=== PATIENT | female | born 1995 | race Hispanic/Latino ===

== ENCOUNTER 2024-11-03 08:44 | Emergency (ER) | payer OTHER ==
[~2024-11-03] VITALS: Ht 175.3 cm; Wt 79.9 kg
[2024-11-03 09:57] LABS: BASO # 0.0 10^3/uL (0.0-0.2); BASO % 0.5 % (0.0-1.0); EOS # 0.1 10^3/uL (0.0-0.5); EOS % 0.8 % (0.0-3.0); LYMPH # 1.9 10^3/uL (1.5-5.0); LYMPH % 22.0 % (24.0-44.0); MONO # 0.8 10^3/uL (0.0-0.8); MONO % 9.3 % (2.0-8.0); NEUTROPHILS # 5.7 10^3/uL (1.5-8.5); NEUTROPHILS % 67.2 % (36.0-66.0); PLATELET COUNT, AUTOMATED 284 10^3/uL (150-450)
[2024-11-03 10:32] LABS: HCG, SERUM QUALITATIVE NEGATIVE (NEGATIVE)
[2024-11-03] MEDS: KETOROLAC 30 MG/ML 1 ML VIAL IV ONE (11:17)
[2024-11-03 12:15] VITALS: TEMP 97.8
[2024-11-03] MEDS ORDERED: NAPR-837 PO (12:42)
[2024-11-03 12:53] VITALS: BP 131/64; O2SAT 100
== END 2024-11-03 12:55 | disposition home or self-care (01) ==
LOC: M ED 08:44
DX: N83.291 Other ovarian cyst, right side (principal); Z79.899 Other long term (current) drug therapy
CPT/HCPCS: 76830; 76856; 80047; 84702; 84703; 85025; 86850; 93976; 96374; 99284; J1885